=== PATIENT | female | born 1975 ===

== ENCOUNTER → 2023-10-16 11:54 | Outpatient (CLI) | payer OTHER, MEDICAID, SELFPAY ==
--- NOTE | 2023-10-16 | DI.MG.S_ITS ---
BILATERAL DIGITAL DIAGNOSTIC MAMMOGRAM 3D/2D: 10/16/2023 CLINICAL: Baseline mammo. Breast pain. No prior exams were available for comparison. Both breasts are heterogeneously dense, which may obscure small masses (category c / 51-75% glandular tissue). No significant masses, calcifications, or other findings are seen in either breast. IMPRESSION: INCOMPLETE: NEEDS ADDITIONAL IMAGING EVALUATION There is no abnormality seen in the left breast to correspond with the areas of clinical concern described as palpable abnormality in the upper outer quadrant posterior depth indicated by triangular marker, and pain in the upper aspect and subareolar region of the left breast; however, an ultrasound is recommended for further evaluation and is scheduled to immediately follow this examination. Based on the Tyrer Cuzick model (a risk assessment model) the patient's lifetime risk is 9.6% and her 10 year risk is 1.9%. According to the ACR, ACS, and NCCN guidelines, an annual breast MRI exam along with mammogram is recommended if the patient's lifetime risk is 20% or greater. This exam was interpreted at Station ID: [id number]. NOTE: For mammograms, a report in lay terms will be sent to the patient. Approximately 15% of breast malignancies will not be visualized mammographically. In the management of a palpable breast mass, a negative mammogram must not discourage biopsy of a clinically suspicious lesion. Electronically Signed By: Ozzie Corbett M.D. aty/:10/16/2023 14:05:39 ACR BI-RADS Category 0: Incomplete 3340F
--- NOTE | 2023-10-16 | DI.US.S_ITS ---
PROCEDURE: US BREAST LT LIMITED COMPARISON: None. INDICATIONS: BREAST PAIN FINDINGS: IMPRESSION: Dictated by: Ozzie Corbett M.D. on 10/16/2023 at 14:00 Approved by: Ozzie Corbett M.D. on 10/16/2023 at 14:09
--- NOTE | 2023-10-16 13:02 | DI.US.S_ITS ---
Patient Name: PEPITO GARCIA date: 1975 Sex: F Attending Physician: Elaine Indications: Date: 10/16/2023 14:09 At the request of: RANDY WAGONER Procedure: US breast LT limited ULTRASOUND OF LEFT BREAST: 10/16/2023 CLINICAL: Palpable left breast lump with radiating pain (both improving). One episode clear nipple discharge. Comparison is made to exam dated: 10/16/2023 mammogram - [facility]. Color flow and real-time ultrasound of the left breast were performed. [place]an scale images of the real-time examination were reviewed. There is a wider than tall normal lymph node in the left breast at 2 o'clock posterior depth. This normal lymph node displays fatty hilum. This correlates as palpated and with area of clinical concern. No other significant abnormalities were seen sonographically in the left breast. IMPRESSION: INCOMPLETE: NEEDS ADDITIONAL IMAGING EVALUATION The wider than tall normal lymph node in the left breast is benign. There is no abnormality seen in the left breast to correspond with the area of clinical concern and patient directed area of pain at 12 o'clock, however, recommend clinical follow up for persistent or worsening symptoms, or development of any clinically suspicious findings. There is no abnormality seen in the left breast to correspond with the area of clinical concern and pain in the sub-areolar depth, however, recommend clinical follow up for persistent or worsening symptoms, or development of any clinically suspicious findings. A 1 year screening mammogram is recommended. Findings and recommendations were conveyed to the patient during today's evaluation. Continued Report - Page 2 of 2 Patient Name: PEPITO GARCIA date: 1975 Sex: F Attending Physician: Elaine Indications: Date: 10/16/2023 14:09 At the request of: RANDY WAGONER Procedure: US breast LT limited This exam was interpreted at Station ID: [id number]. Electronically Signed By: Ozzie Corbett M.D. aty/:10/16/2023 14:09:23 letter sent: Clinical Evaluation Ultrasound BI-RADS: 0 Indeterminate
== END ==
PROVIDERS: Referring Provider Registered Nurse; Visit Provider Registered Nurse
DX: N64.4 Mastodynia (principal); R92.8 Other abnormal and inconclusive findings on diagnostic imaging of breast
CPT/HCPCS: 76642; 77066; G0279